=== PATIENT | male | born 1970 | race African-American/Black ===

== ENCOUNTER 2025-09-05 18:10 | Emergency (ER) | payer OTHER ==
[~2025-09-05] VITALS: Ht 185.4 cm; Wt 136.1 kg
[2025-09-05 18:49] LABS: ABG BASE EXCESS 1.3 mmol/L (-2.0-3.0); ABG OXYGEN SATURATION 94.9 % (94.0-98.0); ABG PCO2 31.5 mmHg (35.0-48.0); ABG PH 7.491 (7.350-7.450); ABG PO2 69.0 mmHg (83.0-108.0); ABG TOTAL HEMOGLOBIN 17.1 G/dL (13.5-17.5); FRACTIONATED INSPIRED OXYGEN 21.0 %; SITE, ABG RIGHT RADIAL
[2025-09-05] MEDS: IV NS 0.9% 1,000 ML BAG IV ONE ×2 (19:00→20:40)
[2025-09-05] MEDS ORDERED: IBUPROFEN 400 MG TABLET ONE (19:12)
[2025-09-05] MEDS: IBUPROFEN 400 MG TABLET PO ONE (19:15)
[2025-09-05 19:17] LABS: PLATELET COUNT (AUTO) 296 K/uL (150-450); RED BLOOD CELL COUNT(AUTO) 6.00 MIL/uL (4.5-6.0); RED CELL DISTRIBUTION WIDTH 14.0 % (11.5-15.0); WHITE BLOOD COUNT (AUTO) 9.0 K/uL (4.3-11.0)
[2025-09-05 19:23] LABS: CALCIUM, SERUM 8.7 mg/dL (8.5-10.1); CREATININE 1.1 mg/dL (0.6-1.3); SODIUM SERUM 136.0 mmol/L (136-145); UREA NITROGEN, BLOOD 12.0 mg/dL (7-18)
[2025-09-05 19:31] LABS: INR 1.08 (0.91-1.10); LACTIC ACID 1.7 mmol/L (0.4-2.0)
[2025-09-05 19:38] LABS: ASPARTATE AMINOTRANSFERASE 33.0 U/L (15-37); TOTAL PROTEIN, SERUM 8.0 g/dL (6.4-8.2)
[2025-09-05 20:59] LABS: APPEARANCE,URINE CLEAR (CLEAR); BLOOD, URINE TRACE-INTA Ery/uL (NEGATIVE); LEUKOCYTE ESTERASE ,URINE NEGATIVE (NEGATIVE); NITRITE, URINE NEGATIVE (NEGATIVE); UGLUCOSE 2+ mg/dL (NEGATIVE)
[2025-09-05 21:32] LABS: ADD URINE CULTURE NO; SQUAMOUS EPITHELIAL CELL,UR 0-2 /HPF (None Seen)
[2025-09-05 22:44] VITALS: BP 121/60; TEMP 99.6; O2SAT 98
== END 2025-09-05 22:45 | disposition home or self-care (01) ==
LOC: ER 18:31
DX: B34.9 Viral infection, unspecified (principal); I11.9 Hypertensive heart disease without heart failure; E11.9 Type 2 diabetes mellitus without complications; Z79.4 Long term (current) use of insulin; Z20.822 Contact with and (suspected) exposure to COVID-19; Z86.2 Personal history of diseases of the blood and blood-forming organs and certain disorders involving the immune mechanism
CPT/HCPCS: 36415; 71045-TC; 80048-TC; 80076-TC; 81001; 82962-TC; 83605-TC; 85025-TC; 85730-TC; 87040-TC; 87086-TC